=== PATIENT | female | born 2000 | race Caucasian/White ===

== ENCOUNTER → 2021-02-09 11:14 | Outpatient (CLI) | payer OTHER, SELFPAY ==
--- NOTE | ~2021-02-09 | US_ITS ---
EXAMINATION: US pelvic complete DATE: 02/09/2021 11:46 INDICATION: Missing IUD string TECHNIQUE: Multiple transabdominal and endovaginal sonographic images of the pelvis were obtained. COMPARISON: None. FINDINGS: The uterus measures 7.7 x 3.4 x 4.8 cm. The endometrial complex measures 5 mm in thickness. Linear e chogenic and shadowing IUD is seen centered within the endometrial canal. The right ovary measures 3. 4 x 1.9 x 3.0 cm. The left ovary measures 2.6 x 2.2 x 2.8 cm. Vascular flow identified in both ovarie s on color Doppler. There is no free fluid in the pelvis. IMPRESSION: 1. Normal pelvic ultrasound with IUD centered within the endometrial canal. Reviewed, dictated and finalized at location A.
== END ==
PROVIDERS: Visit Provider Nurse Practitioner
DX: Z30.431 Encounter for routine checking of intrauterine contraceptive device (principal)
CPT/HCPCS: 76856

== ENCOUNTER → 2022-04-16 07:45 | Outpatient (CLI) | payer OTHER, SELFPAY ==
--- NOTE | ~2022-04-16 | US_ITS ---
US thyroid INDICATION: Thyroid nodule TECHNIQUE: Real-time sonographic images of the thyroid gland were obtained. COMPARISON: No prior studies for comparison. FINDINGS: The right thyroid lobe measures 4.4 x 1.3 x 1.3 cm. The left thyroid lobe measures 5.2 x 2 .6 x 2.9 cm. There is a small cyst in the right thyroid lobe measuring 2 mm. In the left lobe there i s a complex mixed solid and cystic mass measuring 3.7 x 2.8 x 2.4 cm. This mass is isoechoic, wider t almonte tall with smooth margins and punctate echogenic foci, thyroid classification TR 4. IMPRESSION: 1. Complex left thyroid mass measuring up to 3.7 cm, TR 4. Ultrasound-guided fine-needle aspiration biopsy recommended. Reviewed, dictated and finalized at location B. IMPRESSION: 1. Complex left thyroid mass measuring up to 3.7 cm, TR 4. Ultrasound-guided f ine-needle aspiration biopsy recommended.
== END ==
PROVIDERS: PCP Nurse Practitioner; Visit Provider Nurse Practitioner
DX: E04.1 Nontoxic single thyroid nodule (principal)
CPT/HCPCS: 76536

== ENCOUNTER → 2023-05-07 10:07 | Outpatient (CLI) | payer OTHER, SELFPAY ==
--- NOTE | ~2023-05-07 | US_ITS ---
EXAMINATION: US pelvic complete DATE: 05/07/2023 10:25 INDICATION: Pelvic and perineal pain TECHNIQUE: Multiple transabdominal sonographic images of the pelvis were obtained. COMPARISON: 02/09/2021 FINDINGS: The uterus measures 7.5 x 3.6 x 4.9 cm. The endometrial complex measures 8.5 mm. The IUD ap pears to be in expected position. The right ovary measures 2.8 x 1.9 x 2.4 cm. The left ovary measure s 3 x 1.9 x 2.1 cm. There is normal vascular flow in the ovaries. There is no free fluid in the pelvi s. IMPRESSION: 1. No sonographic correlate for the patient's symptoms. IUD in expected position. Reviewed, dictated and finalized at location L. IMPRESSION: 1. No sonographic correlate for the patient's symptoms. IUD in expected positio n.
== END ==
PROVIDERS: PCP Nurse Practitioner; Visit Provider Nurse Practitioner
DX: R10.2 Pelvic and perineal pain (principal); Z97.5 Presence of (intrauterine) contraceptive device
CPT/HCPCS: 76856

== ENCOUNTER 2024-05-04 11:41 | Outpatient (CLI) | payer OTHER, SELFPAY ==
--- NOTE | ~2024-05-04 | US_ITS ---
EXAMINATION: US thyroid DATE: 05/04/2024 12:00 INDICATION: Thyroid nodule. TECHNIQUE: Multiple ultrasound images of the thyroid were obtained. COMPARISON: Ultrasound 04/16/2022 FINDINGS: The right thyroid lobe measures 4.8 x 1.3 x 1.1 cm. The left thyroid lobe measures 5.1 x 2.3 x 3.0 c m. In the right thyroid lobe, there is a 3 mm nodule. In the left thyroid lobe, there is a 3.9 cm mi xed cystic and solid, isoechoic, wider than tall nodule with ill-defined margin without echogenic foc i (TI-RADS TR2), stable from 04/16/22. IMPRESSION: 1. Thyroid nodules, likely not clinically significant. No follow-up is needed. Reviewed, dictated and finalized at location A.
== END 2024-05-04 11:42 | disposition home or self-care (01) ==
LOC: MICIMG 11:43
PROVIDERS: PCP Nurse Practitioner; Visit Provider Nurse Practitioner
DX: E04.2 Nontoxic multinodular goiter (principal)
CPT/HCPCS: 76536